=== PATIENT | male | born 1940 | race Caucasian/White ===

== ENCOUNTER 2019-02-24 15:13 | Emergency (ER) | payer OTHER ==
[2019-02-24] MEDS ORDERED: LIDOCAINE 1% MPF 5 ML VIAL ONE (15:35)
--- NOTE | 2019-02-24 16:15 | EDPHYS ---
Physician Documentation [facility] Name: Devonte Martines Age: 78 yrs Sex: Male : 1940 Arrival Date: 02/24/2019 Time: 15:14 Bed 7 Private MD: Emiliano Elena C ED Physician Willem Grover HPI: 02/24 16:18 This 78 yrs old Male presents to ER via Ambulatory with complaints of Fall jr8 Injury, Skin Tear(s). 16:18 Details of fall: The patient fell from an upright position, while walking. Onset: The jr8 symptoms/episode began/occurred just prior to arrival. Associated injuries: The patient sustained injury to the head, laceration, 2.5 cm(s). Severity of symptoms: At their worst the symptoms were mild, in the emergency department the symptoms are unchanged. Pt reports he tripped and fell while walking and his glasses hit his face causing a laceration. Historical: - Allergies: 15:23 No Known Allergies; ss - Immunization history:: Last tetanus immunization: up to date. - Social history:: Smoking status: Patient/guardian denies using tobacco. - Ebola Screening: : Patient denies exposure to infectious person Patient denies travel to an Ebola-affected area in the 21 days before illness onset. ROS: 16:19 Constitutional: Negative for fever, chills, and weight loss, Eyes: Negative for injury, jr8 pain, redness, and discharge, Cardiovascular: Negative for chest pain, palpitations, and edema, Respiratory: Negative for shortness of breath, cough, wheezing, and pleuritic chest pain, Abdomen/GI: Negative for abdominal pain, nausea, vomiting, diarrhea, and constipation, Back: Negative for injury and pain, MS/Extremity: Negative for injury and deformity, Neuro: Negative for headache, weakness, numbness, tingling, and seizure. 16:19 Skin: Positive for laceration(s). Exam: 16:19 Constitutional: This is a well developed, well nourished patient who is awake, alert, jr8 and in no acute distress. Eyes: Pupils equal round and reactive to light, extra-ocular motions intact. Lids and lashes normal. Conjunctiva and sclera are non-icteric and not injected. Cornea within normal limits. Periorbital areas with no swelling, redness, or edema. Neck: Trachea midline, no thyromegaly or masses palpated, and no cervical lymphadenopathy. Supple, full range of motion without nuchal rigidity, or vertebral point tenderness. No Meningismus. Chest/axilla: Normal chest wall appearance and motion. Nontender with no deformity. No lesions are appreciated. Cardiovascular: Regular rate and rhythm with a normal S1 and S2. No gallops, murmurs, or rubs. Normal PMI, no JVD. No pulse deficits. Respiratory: Lungs have equal breath sounds bilaterally, clear to auscultation and percussion. No rales, rhonchi or wheezes noted. No increased work of breathing, no retractions or nasal flaring. Abdomen/GI: Soft, non-tender, with normal bowel sounds. No distension or tympany. No guarding or rebound. No evidence of tenderness throughout. Back: No spinal tenderness. No costovertebral tenderness. Full range of motion. 16:19 Head/face: Noted is a laceration(s), that is superficial, that is linear, 2.5 cm(s), of the left cheek. 16:19 Skin: injury, laceration(s), the wound is approximately 3 cm(s), with a depth of 1 cm(s), of the right hand. Vital Signs: 15:20 BP 160 / 104; Pulse 71; Resp 16; Temp 97.6(TE); Pulse Ox 100% on R/A; Weight 81.65 kg; ss Height 5 ft. 8 in. (172.72 cm); Pain 1/10; 15:20 Body Mass Index 27.37 (81.65 kg, 172.72 cm) ss Laceration: 16:15 Wound Repair of 2.5cm ( 1.0in ) subcutaneous laceration to left lower eyelid. Linear jr8 shaped.. Distal neuro/vascular/tendon intact. Anesthesia: Local anesthetic administered with 1% lidocaine. Wound prep: Moderate cleansing, Copious irrigation. Skin closed with 3 5-0 Prolene using simple sutures and sterile technique. Patient tolerated well. 16:15 Wound Repair of 3cm ( 1.2in ) subcutaneous laceration to outer aspect of right palm. jr8 Irregularly shaped.. Distal neuro/vascular/tendon intact. Anesthesia: Local anesthetic administered with 2 mls of 1% lidocaine. Skin closed with 3 4-0 Prolene using simple sutures and sterile technique. Patient tolerated well. MDM: 15:26 Patient medically screened. jr8 16:11 Data reviewed: vital signs, nurses notes, and as a result, I will discharge patient. jr8 Data interpreted: Pulse oximetry: on room air is 100 %. Interpretation: normal. 02/24 15:45 Order name: Prolene, Sutures; Complete Time: 15:56 jr8 02/24 15:45 Order name: Dressing - Wound; Complete Time: 15:56 jr8 02/24 15:45 Order name: Gloves, Sterile; Complete Time: 15:56 jr8 02/24 15:45 Order name: Setup Suture Tray; Complete Time: 15:56 jr8 Administered Medications: 15:58 Drug: Lidocaine (1 %) 1 vials Volume: 20 ml; Route: Infiltration; Disposition: 02/25 15:08 Co-signature as Attending Physician, Willem Grover MD. Disposition: 02/24/19 16:14 Discharged to Home. Impression: Laceration without foreign body of left eyelid and periocular area, Laceration without foreign body of right hand. - Condition is Stable. - Discharge Instructions: Laceration Care, Adult, Facial Laceration. - Medication Reconciliation Form, Thank You Letter form. - Follow up: Private Physician; When: 2 - 3 days; Reason: Recheck today's complaints, Re-evaluation by your physician. - Problem is new. - Symptoms have improved. Signatures: Peggy Valente RN RN Thomas Simmons PA PA jr8 Julienne Head RN RN Willem Grover MD MD Corrections: (The following items were deleted from the chart) 02/24 16:25 16:14 02/24/2019 16:14 Discharged to Home. Impression: Laceration without foreign body ss of left eyelid and periocular area; Laceration without foreign body of right hand. Condition is Stable. Forms are Medication Reconciliation Form, Thank You Letter, Antibiotic Education, Prescription Opioid Use. Follow up: Private Physician; When: 2 - 3 days; Reason: Recheck today's complaints, Re-evaluation by your physician. Problem is new. Symptoms have improved. jr8
--- NOTE | 2019-02-24 16:15 | ER ---
Nurse's Notes [facility] Name: Devonte Martines Age: 78 yrs Sex: Male : 1940 Arrival Date: 02/24/2019 Time: 15:14 Bed 7 Private MD: Emiliano Elena C Diagnosis: Laceration without foreign body of left eyelid and periocular area;Laceration without foreign body of right hand Presentation: 02/24 15:21 Presenting complaint: Patient states: Tripped on curb and fell from standing, ss sustaining an abrasion under L nare, 1 cm laceration under L eye, avulsion and abrasion to R hand. Denies LOC. Transition of care: patient was not received from another setting of care. Onset of symptoms was February 24, 2019. Risk Assessment: Do you want to hurt yourself or someone else? Patient reports no desire to harm self or others. Initial Sepsis Screen: Does the patient meet any 2 criteria? No. Patient's initial sepsis screen is negative. Does the patient have a suspected source of infection? No. Patient's initial sepsis screen is negative. Care prior to arrival: None. 15:21 Acuity: RICHA 4 ss 15:21 Method Of Arrival: Ambulatory ss Historical: - Allergies: 15:23 No Known Allergies; ss - Immunization history:: Last tetanus immunization: up to date. - Social history:: Smoking status: Patient/guardian denies using tobacco. - Ebola Screening: : Patient denies exposure to infectious person Patient denies travel to an Ebola-affected area in the 21 days before illness onset. Screenin:25 Abuse screen: Denies threats or abuse. Denies injuries from another. Nutritional hb screening: No deficits noted. Tuberculosis screening: No symptoms or risk factors identified. Fall Risk None identified. Assessment: 15:25 General: Appears in no apparent distress. Behavior is calm, cooperative. Pain: Pain hb currently is 1 out of 10 on a pain scale. Neuro: Level of Consciousness is awake, alert, obeys commands, Oriented to person, place, time, situation. Cardiovascular: Capillary refill < 3 seconds Patient's skin is warm and dry. Respiratory: Airway is patent Respiratory effort is even, unlabored, Respiratory pattern is regular, symmetrical. GI: No signs and/or symptoms were reported involving the gastrointestinal system. : No signs and/or symptoms were reported regarding the genitourinary system. EENT: No signs and/or symptoms were reported regarding the EENT system. Derm: Skin is pink, warm \T\ dry. Musculoskeletal: No signs and/or symptoms reported regarding the musculoskeletal system. Injury Description: laceration to left cheek, base of right thumb. Vital Signs: 15:20 BP 160 / 104; Pulse 71; Resp 16; Temp 97.6(TE); Pulse Ox 100% on R/A; Weight 81.65 kg; ss Height 5 ft. 8 in. (172.72 cm); Pain 1/10; 15:20 Body Mass Index 27.37 (81.65 kg, 172.72 cm) ED Course: 15:14 Patient arrived in ED. as 15:14 Emiliano Elena MD is Private Physician. as 15:20 Arm band placed on right wrist. 15:22 Triage completed. 15:25 Patient has correct armband on for positive identification. Bed in low position. Call hb light in reach. Side rails up X 1. 15:25 No provider procedures requiring assistance completed. Patient did not have IV access hb during this emergency room visit. 15:26 Thomas Simmons PA is PHCP. jr8 15:26 Willem Grover MD is Attending Physician. jr8 15:39 Nancy Teresa RN is Primary Nurse. ph Administered Medications: 15:58 Drug: Lidocaine (1 %) 1 vials Volume: 20 ml; Route: Infiltration; hb Outcome: 16:14 Discharge ordered by . jr8 16:25 Patient left the ED. 16:25 Discharged to home ambulatory. ph 16:25 Condition: good 16:25 Discharge instructions given to patient, Instructed on discharge instructions, follow up and referral plans. wound care, Demonstrated understanding of instructions, follow-up care, wound care. Signatures: Ela Schulz Shelby, RN RN Thomas Simmons PA PA jr Nancy Teresa RN RN Julienne Head RN RN hb
[2019-02-24 16:47] VITALS: BP 160/104; TEMP 97.6; O2SAT 100
== END 2019-02-24 16:25 | disposition home or self-care (01) ==
LOC: ER 15:13
PROC: 08QRXZZ Repair Left Lower Eyelid, External Approach (ICD-10-PCS; principal; 2019-02-24)
PROC: 0JQJ0ZZ Repair Right Hand Subcutaneous Tissue and Fascia, Open Approach (ICD-10-PCS; 2019-02-24)
DX: S01.112A Laceration without foreign body of left eyelid and periocular area, initial encounter (principal); S61.411A Laceration without foreign body of right hand, initial encounter; W01.0XXA Fall on same level from slipping, tripping and stumbling without subsequent striking against object, initial encounter; Y93.9 Activity, unspecified; Y92.9 Unspecified place or not applicable
CPT/HCPCS: 99283

== ENCOUNTER 2019-03-03 06:57 | Emergency (ER) | payer OTHER ==
--- NOTE | 2019-03-03 07:12 | ER ---
Nurse's Notes [facility] Name: Devonte Martines Age: 78 yrs Sex: Male : 1940 Arrival Date: 03/03/2019 Time: 06:58 Bed 20 Private MD: Diagnosis: Encounter for removal of sutures Presentation: 03/03 07:06 Presenting complaint: Patient states: remove sutures from under left eye. Transition of em care: patient was not received from another setting of care. Onset of symptoms was February 22, 2019. Risk Assessment: Do you want to hurt yourself or someone else? Patient reports no desire to harm self or others. Initial Sepsis Screen: Does the patient meet any 2 criteria? No. Patient's initial sepsis screen is negative. Does the patient have a suspected source of infection? No. Patient's initial sepsis screen is negative. Care prior to arrival: None. 07:06 Method Of Arrival: Ambulatory em 07:16 Acuity: RICHA 5 iw Historical: - Allergies: 07:10 No Known Allergies; em - Home Meds: 07:10 amlodipine 2.5 mg tab [Active]; em - PMHx: 07:10 Hypertension; em - PSHx: 07:10 back sx; em - Immunization history:: Adult Immunizations up to date. - Social history:: Smoking status: Patient/guardian denies using tobacco. - Ebola Screening: : Patient negative for fever greater than or equal to 101.5 degrees Fahrenheit, and additional compatible Ebola Virus Disease symptoms Patient denies exposure to infectious person Patient denies travel to an Ebola-affected area in the 21 days before illness onset No symptoms or risks identified at this time. Screenin:10 Abuse screen: Denies threats or abuse. Nutritional screening: No deficits noted. em Tuberculosis screening: No symptoms or risk factors identified. Fall Risk None identified. Assessment: 07:10 General: Appears in no apparent distress. comfortable, Behavior is calm, cooperative, em Denies fever. Pain: Denies pain. Neuro: Level of Consciousness is awake, alert, obeys commands, Oriented to person, place, time, situation, Appropriate for age. Cardiovascular: Capillary refill < 3 seconds Patient's skin is warm and dry. Respiratory: Airway is patent Respiratory effort is even, unlabored, Respiratory pattern is regular, symmetrical. Derm: Skin is intact, is healthy with good turgor, Wound noted Other: sutures under left eye noted, no redness or drainage, left hand wound noted without redness or drainage. Musculoskeletal: Capillary refill < 3 seconds, Range of motion: intact in all extremities. Vital Signs: 07:10 BP 113 / 93; Pulse 71; Resp 18; Temp 98.2; Pulse Ox 98% on R/A; Pain 0/10; em ED Course: 06:58 Patient arrived in ED. ds1 07:03 Brand[facility] kb 07:03 Willem Grover MD is Attending Physician. kb 07:06 Camron Herring LVN is Primary Nurse. em 07:10 Arm band placed on. em 07:10 Patient has correct armband on for positive identification. Bed in low position. Call em light in reach. 07:10 No provider procedures requiring assistance completed. Patient did not have IV access em during this emergency room visit. 07:16 Triage completed. iw Administered Medications: No medications were administered Outcome: 07:11 Discharge ordered by MD. kb 07:20 Discharged to home ambulatory. em 07:20 Condition: good 07:20 Discharge instructions given to patient, Instructed on discharge instructions, follow up and referral plans. Demonstrated understanding of instructions, follow-up care. 07:21 Patient left the ED. em Signatures: Brandi Jones FNP-C FNP-Camron Kay LVN LVN em Iveth Knapp ds1 Camila Tellez, RN RN iw
--- NOTE | 2019-03-03 07:12 | EDPHYS ---
Physician Documentation [facility] Name: Devonte Martines Age: 78 yrs Sex: Male : 1940 Arrival Date: 03/03/2019 Time: 06:58 Bed 20 Private MD: ED Physician Willem Grover HPI: 03/03 07:15 This 78 yrs old Male presents to ER via Ambulatory with complaints of Suture kb Removal. 07:15 The patient has sutures on the below left eye and left hand. Previous treatment: The kb patient was initially treated 7 day(s) ago, the care was rendered at [facility]. Sutures/windy progress: The patient has no c/o's. The wound is well-healing with no redness, swelling, discharge, or dehiscence reported. The patient has not experienced similar symptoms in the past. The patient has not recently seen a physician. Historical: - Allergies: 07:10 No Known Allergies; em - Home Meds: 07:10 amlodipine 2.5 mg tab [Active]; em - PMHx: 07:10 Hypertension; em - PSHx: 07:10 back sx; em - Immunization history:: Adult Immunizations up to date. - Social history:: Smoking status: Patient/guardian denies using tobacco. - Ebola Screening: : Patient negative for fever greater than or equal to 101.5 degrees Fahrenheit, and additional compatible Ebola Virus Disease symptoms Patient denies exposure to infectious person Patient denies travel to an Ebola-affected area in the 21 days before illness onset No symptoms or risks identified at this time. ROS: 07:13 Constitutional: Negative for fever, chills, and weight loss, ENT: Negative for injury, kb pain, and discharge, Neck: Negative for injury, pain, and swelling, Cardiovascular: Negative for chest pain, palpitations, and edema, Respiratory: Negative for shortness of breath, cough, wheezing, and pleuritic chest pain, Abdomen/GI: Negative for abdominal pain, nausea, vomiting, diarrhea, and constipation, MS/Extremity: Negative for injury and deformity, Neuro: Negative for headache, weakness, numbness, tingling, and seizure. 07:13 Skin: Positive for laceration(s), of the below left eye and left hand, sutures in place. Exam: 07:12 Constitutional: This is a well developed, well nourished patient who is awake, alert, kb and in no acute distress. Head/Face: Normocephalic, atraumatic. Neck: Trachea midline, no thyromegaly or masses palpated, and no cervical lymphadenopathy. Supple, full range of motion without nuchal rigidity, or vertebral point tenderness. No Meningismus. Chest/axilla: Normal chest wall appearance and motion. Nontender with no deformity. No lesions are appreciated. Cardiovascular: Regular rate and rhythm with a normal S1 and S2. No gallops, murmurs, or rubs. Normal PMI, no JVD. No pulse deficits. Respiratory: Lungs have equal breath sounds bilaterally, clear to auscultation and percussion. No rales, rhonchi or wheezes noted. No increased work of breathing, no retractions or nasal flaring. Abdomen/GI: Soft, non-tender, with normal bowel sounds. No distension or tympany. No guarding or rebound. No evidence of tenderness throughout. Back: No spinal tenderness. No costovertebral tenderness. Full range of motion. MS/ Extremity: Pulses equal, no cyanosis. Neurovascular intact. Full, normal range of motion. Neuro: Awake and alert, GCS 15, oriented to person, place, time, and situation. Cranial nerves II-XII grossly intact. Motor strength 5/5 in all extremities. Sensory grossly intact. Cerebellar exam normal. Normal gait. 07:12 Skin: Wound recheck: Suture laceration closure: the wound is healing well, the edges are well approximated, no evidence of dehiscence, no drainage, no erythema, no swelling. Vital Signs: 07:10 BP 113 / 93; Pulse 71; Resp 18; Temp 98.2; Pulse Ox 98% on R/A; Pain 0/10; em Procedures: 07:16 Suture/Staple removal: Removed 6 sutures, from 3 below left eye, 3 left hand, site kb appears well healed, dressed with Neosporin, Patient tolerated well. MDM: 07:03 Patient medically screened. kb 07:10 Data reviewed: vital signs, nurses notes. Data interpreted: Pulse oximetry: on room air kb is 100 %. Interpretation: normal. Counseling: I had a detailed discussion with the patient and/or guardian regarding: the historical points, exam findings, and any diagnostic results supporting the discharge/admit diagnosis, the need for outpatient follow up, a family practitioner, to return to the emergency department if symptoms worsen or persist or if there are any questions or concerns that arise at home. Administered Medications: No medications were administered Disposition: 03/03/19 07:11 Discharged to Home. Impression: Encounter for removal of sutures. - Condition is Stable. - Discharge Instructions: Suture Removal, Care After. - Medication Reconciliation Form, Thank You Letter, Antibiotic Education, Prescription Opioid Use form. - Follow up: Private Physician; When: 2 - 3 days; Reason: Recheck today's complaints, Continuance of care, Re-evaluation by your physician. Follow up: Emergency Department; When: As needed; Reason: Worsening of condition. Signatures: Brandi Jones, ALEE DIRECTOR OF SPEECH PATHOLOGY-Camron Kay, ARSON INVESTIGATOR ARSON INVESTIGATOR em Corrections: (The following items were deleted from the chart) 07:21 07:11 03/03/2019 07:11 Discharged to Home. Impression: Encounter for removal of em sutures. Condition is Stable. Forms are Medication Reconciliation Form, Thank You Letter, Antibiotic Education, Prescription Opioid Use. Follow up: Private Physician; When: 2 - 3 days; Reason: Recheck today's complaints, Continuance of care, Re-evaluation by your physician. Follow up: Emergency Department; When: As needed; Reason: Worsening of condition. kb
[2019-03-03 07:26] VITALS: BP 113/93; TEMP 98.2; O2SAT 98
== END 2019-03-03 07:21 | disposition home or self-care (01) ==
LOC: ER 06:57
DX: Z48.02 Encounter for removal of sutures (principal)
CPT/HCPCS: 99281